=== PATIENT | male | born 1990 | race Caucasian/White ===

== ENCOUNTER 2017-05-12 19:41 | Emergency (ER) | payer OTHER ==
[~2017-05-12] VITALS: Ht 177.8 cm; Wt 97.5 kg
[~2017-05-12 19:41] MED LIST: HYDROCODONE BIT1 T11 PO; LIDEX 0.05% CRE15 GM T; LOMOTIL 0.025 M1 TA1 PO; MOTRIN800 MG PO; NAPROSYN500 MG PO; OMEPRAZOLE40 MG PO; PERCOCET 325 MG1 TA7 PO; PREDNICOT20 MG PO; PREDNISONE20 M1 PO; PROCTO RC; ZITHROMAX Z PA250 MG PO
== END 2017-05-12 21:42 | disposition home or self-care (01) ==
LOC: ED 19:41
DX: S92.421A Displaced fracture of distal phalanx of right great toe, initial encounter for closed fracture (principal); R60.0 Localized edema; Z79.899 Other long term (current) drug therapy; W22.8XXA Striking against or struck by other objects, initial encounter; Y93.66 Activity, soccer; Y92.89 Other specified places as the place of occurrence of the external cause; Y99.9 Unspecified external cause status

== ENCOUNTER → 2017-06-16 | Outpatient (CLI) | payer OTHER | END | disposition home or self-care (01) | LOC: ORTHO 03:32 | DX: S92.424D Nondisplaced fracture of distal phalanx of right great toe, subsequent encounter for fracture with routine healing (principal); X58.XXXD Exposure to other specified factors, subsequent encounter ==

== ENCOUNTER 2017-10-07 10:59 | Emergency (ER) | payer OTHER ==
[~2017-10-07] VITALS: Ht 177.8 cm; Wt 102.1 kg
[2017-10-07] MEDS ORDERED: NAPROSYN500 MG PO (13:19)
[2017-10-07] MEDS ORDERED: MEDROL DOSEPAK4 MG PO (13:19)
[2017-10-07] MEDS ORDERED: CYCLOBENZAPRINE10 MG PO (13:19)
== END 2017-10-07 14:00 | disposition home or self-care (01) ==
LOC: ED 10:59
DX: S39.012A Strain of muscle, fascia and tendon of lower back, initial encounter (principal); W00.0XXA Fall on same level due to ice and snow, initial encounter; Y93.89 Activity, other specified; Y92.89 Other specified places as the place of occurrence of the external cause; Y99.8 Other external cause status

== ENCOUNTER 2019-05-18 11:33 | Emergency (ER) | payer OTHER ==
[~2019-05-18] VITALS: Ht 177.8 cm; Wt 102.1 kg
[~2019-05-18 11:33] MED LIST changes: +AUGMENTIN 875-875 MG PO; +CYCLOBENZAPRINE10 MG PO; +MEDROL DOSEPAK4 MG PO
[2019-05-18] MEDS ORDERED: VISTARIL25 MG PO (11:52)
[2019-05-18] MEDS ORDERED: DELTASONE20 M1 PO (11:52)
== END 2019-05-18 12:10 | disposition home or self-care (01) ==
LOC: ED 11:33
DX: L25.9 Unspecified contact dermatitis, unspecified cause (principal); H57.89 Other specified disorders of eye and adnexa; Z79.899 Other long term (current) drug therapy; Z79.2 Long term (current) use of antibiotics

== ENCOUNTER → 2020-10-02 | Outpatient (CLI) | payer BC ==
[~2020-10-02] MED LIST changes: +DELTASONE20 M1 PO; +VISTARIL25 MG PO
== END | disposition home or self-care (01) ==
LOC: COVID19 11:51
PROVIDERS: ATTEND Internal Medicine
DX: U07.1 COVID-19 (principal)

== ENCOUNTER → 2021-09-17 | Outpatient (CLI) | payer BC | END | disposition home or self-care (01) | LOC: COVID19 15:20 | PROVIDERS: ATTEND Student in an Organized Health Care Education/Training Program | DX: U07.1 COVID-19 (principal) ==

== ENCOUNTER → 2025-03-09 | Outpatient (CLI) | payer OTHER ==
[2025-03-09 17:07] LABS: BUN 12 mg/dl (9-23); LDL CHOLESTEROL 113 mg/dL (9-159); SGPT/ALT 32 U/L (5-49)
[2025-03-09 17:08] LABS: VITAMIN D, 25-HYDROXY 36.5 ng/mL (30-100)
== END | disposition home or self-care (01) ==
LOC: LAB 14:00
PROVIDERS: ATTEND Nurse Practitioner Family
DX: Z13.1 Encounter for screening for diabetes mellitus (principal); Z13.220 Encounter for screening for lipoid disorders; Z13.29 Encounter for screening for other suspected endocrine disorder; Z13.0 Encounter for screening for diseases of the blood and blood-forming organs and certain disorders involving the immune mechanism